=== PATIENT | male | born 1950 | race Caucasian/White ===

== ENCOUNTER 2024-05-31 11:38 | Emergency (ER) | payer OTHER, MEDICARE ==
[2024-05-31 13:39] LABS: Absolute Monocytes 0.2 K/uL (0.1-1.3); Basophils % 0.9 % (0-1.3); Eosinophils % 1.2 % (0-4.4); Hematocrit 19.1 % (39.6-49.0); Hemoglobin 6.6 g/dL (13.6-17.9); MCH 35.1 pg (27.0-35.0); MCHC 34.3 g/dL (32.0-36.0); MCV 102.4 fL (80-100); Monocytes % 5.5 % (3.3-12.3); Neutrophils % 31.4 % (41.7-73.7); Nucleated Red Blood Cells % 0.2 % (0-0); Platelets 51 thou/uL (152-406); RBC Red Blood Cell Count 1.87 M/uL (4.33-5.43); Red Cell Distribution Width 21.7 % (12.1-15.2)
[2024-05-31 13:42] LABS: PT Prothrombin Time 12.4 SECONDS (10-13.0); PTT, Activated Partial Thromb 28.9 SECONDS (27.2-37.4); Protime INR 1.09
[2024-05-31 13:46] LABS: AST/SGOT 16 U/L (15-37); Albumin 3.6 g/dL (3.4-5.0); Albumin/Globulin Ratio 1.3 (1.1-1.8); Alkaline Phosphatase 101 U/L (45-117); Anion Gap 9.2 mEq/L (5.0-15.0); BUN Blood Urea Nitrogen 20 mg/dL (7-18); Bicarbonate 26 mEq/L (21-32); Bilirubin Direct 0.4 mg/dL (0-0.2); Bilirubin Indirect, Calculated 1.1 mg/dL (0.2-0.8); Bilirubin Total 1.5 mg/dL (0.2-1.0); Globulin 2.8 g/dL (2.3-3.5); Glomerular Filtration Rate 61 ml/min (=/>90); Glucose Level 99 mg/dL (74-106); Potassium 4.2 mEq/L (3.5-5.1); Protein, Total 6.4 g/dL (6.4-8.2); Sodium Level 139 mEq/L (136-145); Troponin High Sensitivity 4.8 pg/mL (<58.9)
[2024-05-31 13:47] LABS: Anisocytosis 1+; Blood Morphology Comment NOTED (NOT SEEN); Platelet Estimate DECR; White Blood Cell Scan OK (OK)
[2024-05-31 13:49] LABS: ALT/SGPT < 14 U/L (16-61)
[2024-05-31] MEDS ORDERED: NA CHLORIDE 0.9% 250 ML ONE ×2 (14:51→18:34)
--- NOTE | 2024-05-31 16:03 | ER ---
Nurse's Notes [facility] Name: Isai Diaz Age: 73 yrs Sex: Male : 1950 Arrival Date: 05/31/2024 Time: 11:38 Bed 18 Private MD: Diagnosis: Anemia of unknown etiology Presentation: 05/31 12:18 Chief complaint: Patient states: Sent to the ER by PCP for low HGB. Pt states that his cm10 HGB was 6.1 yesterday. Pt states that he has had 2 transfusions over the last 6 months. Coronavirus screen: Client denies travel out of the [place] in the last 14 days. Ebola Screen: Patient denies travel to an Ebola-affected area in the 21 days before illness onset. Initial Sepsis Screen: Does the patient meet any 2 criteria? No. Patient's initial sepsis screen is negative. Does the patient have a suspected source of infection? No. Patient's initial sepsis screen is negative. Risk Assessment: Do you want to hurt yourself or someone else? Patient reports no desire to harm self or others. Onset of symptoms was May 31, 2024. 12:18 Method Of Arrival: Ambulatory cm10 12:18 Acuity: CALIN 3 cm10 Triage Assessment: 12:23 General: Appears in no apparent distress. comfortable, Behavior is calm, cooperative. cm10 Neuro: No deficits noted. Level of Consciousness is awake, alert, obeys commands, Oriented to person, place, time, situation, Appropriate for age. Respiratory: Airway is patent Respiratory effort is even, unlabored, Respiratory pattern is regular, symmetrical. Derm: Skin is pale. Historical: - Allergies: 12:20 No Known Allergies; cm10 - Home Meds: 12:20 levothyroxine 175 mcg tablet [Active]; atorvastatin 40 mg oral tablet [Active]; cm10 metoprolol tartrate 100 mg Oral tablet [Active]; omeprazole 40 mg Oral capsule,delayed release (e.c.) [Active]; tamsulosin 0.4 mg oral capsule [Active]; - PMHx: 12:20 Anemia; squamous cell carcinoma- tongue; Hypertensive disorder; Hypercholesterolemia; cm10 Hypothyroidism; - Immunization history:: Adult Immunizations up to date. - Infectious Disease History:: Denies. - Social history:: Smoking status: Patient/guardian denies using tobacco. Screenin:30 [facility] ED Fall Risk Assessment (Adult) History of falling in the last 3 months, kj2 including since admission No falls in past 3 months (0 pts) Confusion or Disorientation No (0 pts) Intoxicated or Sedated No (0 pts) Impaired Gait No (0 pts) Mobility Assist Device Used No (0 pt) Altered Elimination No (0 pt) Score/Fall Risk Level 0 - 2 = Low Risk Maintained a safe environment, Hourly rounding (assess needs \T\ fall precautionary measures) done. Abuse screen: Denies threats or abuse. Denies injuries from another. Nutritional screening: No deficits noted. Tuberculosis screening: No symptoms or risk factors identified. Assessment: 12:30 General: Appears in no apparent distress. Behavior is calm, cooperative. Pain: Denies kj2 pain. Neuro: Level of Consciousness is awake, alert, obeys commands, Oriented to person, place, time, situation. Cardiovascular: Patient's skin is warm and dry. Respiratory: Airway is patent Respiratory effort is even, unlabored. GI: Abdomen is. : No signs and/or symptoms were reported regarding the genitourinary system. 13:30 Reassessment: Patient appears in no apparent distress at this time. Patient and/or kj2 family updated on plan of care and expected duration. Pain level reassessed. Patient is alert, oriented x 3, equal unlabored respirations, skin warm/dry/pink. 14:40 Reassessment: Patient appears in no apparent distress at this time. Patient and/or kj2 family updated on plan of care and expected duration. Pain level reassessed. Patient is alert, oriented x 3, equal unlabored respirations, skin warm/dry/pink. 15:15 Reassessment: blood transfusion started. kj2 16:15 Reassessment: discharge after blood transfusion. kj2 16:15 Reassessment: Patient appears in no apparent distress at this time. Patient and/or kj2 family updated on plan of care and expected duration. Pain level reassessed. Patient is alert, oriented x 3, equal unlabored respirations, skin warm/dry/pink. 17:15 Reassessment: Patient appears in no apparent distress at this time. Patient and/or kj2 family updated on plan of care and expected duration. Pain level reassessed. Patient is alert, oriented x 3, equal unlabored respirations, skin warm/dry/pink. 18:30 Reassessment: Patient appears in no apparent distress at this time. Patient and/or kj2 family updated on plan of care and expected duration. Pain level reassessed. Patient is alert, oriented x 3, equal unlabored respirations, skin warm/dry/pink. 19:30 Reassessment: Patient appears in no apparent distress at this time. Patient and/or kj2 family updated on plan of care and expected duration. Pain level reassessed. Patient is alert, oriented x 3, equal unlabored respirations, skin warm/dry/pink. 20:30 Reassessment: Patient appears in no apparent distress at this time. Patient and/or kj2 family updated on plan of care and expected duration. Pain level reassessed. Patient is alert, oriented x 3, equal unlabored respirations, skin warm/dry/pink. 21:30 Reassessment: Patient appears in no apparent distress at this time. Patient and/or kj2 family updated on plan of care and expected duration. Pain level reassessed. Patient is alert, oriented x 3, equal unlabored respirations, skin warm/dry/pink. 22:15 Reassessment: Patient appears in no apparent distress at this time. Patient and/or kj2 family updated on plan of care and expected duration. Pain level reassessed. Patient is alert, oriented x 3, equal unlabored respirations, skin warm/dry/pink. blood transfusion stopped. Vital Signs: 12:18 BP 129 / 65; Pulse 74; Resp 15; Temp 98.3; Pulse Ox 100% on R/A; Weight 92.99 kg; cm10 Height 5 ft. 10 in. ; Pain 0/10; 12:30 BP 116 / 55; Pulse 68; Resp 18; Pulse Ox 100% on R/A; kj2 13:30 BP 112 / 59; Pulse 64; Resp 18; Pulse Ox 100% on R/A; kj2 14:40 BP 109 / 56; Pulse 60; Resp 18; Pulse Ox 100% ; kj2 15:15 BP 134 / 58; Pulse 69; Resp 18; Temp 97.9; Pulse Ox 100% on R/A; kj2 15:20 BP 129 / 65; Pulse 68; Resp 18; Temp 97.9; Pulse Ox 100% on R/A; kj2 15:30 BP 127 / 50; Pulse 65; Resp 20; Temp 97.9; Pulse Ox 100% on R/A; kj2 16:15 BP 130 / 62; Pulse 66; Resp 20; Temp 97.9; Pulse Ox 100% on R/A; kj2 17:15 BP 143 / 60; Pulse 70; Resp 18; Temp 97.9; Pulse Ox 100% on R/A; kj2 18:30 BP 139 / 65; Pulse 64; Resp 20; Temp 97.9; Pulse Ox 100% ; kj2 19:30 BP 136 / 68; Pulse 70; Resp 18; Pulse Ox 100% on R/A; kj2 20:30 BP 142 / 60; Pulse 68; Resp 18; Temp 98.1; Pulse Ox 100% ; kj2 21:30 BP 134 / 66; Pulse 60; Resp 18; Temp 98.1; Pulse Ox 100% on R/A; kj2 22:15 BP 149 / 70; Pulse 70; Resp 18; Temp 98.2; Pulse Ox 100% on R/A; kj2 12:18 Body Mass Index 29.41 (92.99 kg, 177.8 cm) cm10 12:18 Pain Scale: Adult cm10 ED Course: 11:42 Patient arrived in ED. mr 11:44 Alfredo Scott MD is Attending Physician. sp3 12:20 Triage completed. cm10 12:23 Arm band placed on left wrist. Patient placed in an exam room, on a stretcher. cm10 12:30 Patient has correct armband on for positive identification. Bed in low position. Call kj2 light in reach. Provided Education on: call light. 12:47 Anne-Marie Jin, RN is Primary Nurse. kj2 13:10 Inserted saline lock: 20 gauge in left antecubital area, using aseptic technique. Blood kj2 collected. Flushed with 10 mL NS. 13:19 Type And Screen Sent. kj2 13:19 Ptt, Activated Sent. kj2 15:31 Inserted saline lock:. kj2 22:25 IV discontinued, intact, bleeding controlled, No redness/swelling at site. Pressure kj2 dressing applied. 22:55 No provider procedures requiring assistance completed. kj2 Administered Medications: No medications were administered Medication: 15:37 VIS not applicable for this client. kj2 Outcome: 16:03 Discharge ordered by . sp3 22:55 Discharged to home ambulatory, kj2 22:55 Condition: stable 22:55 Discharge instructions given to patient, Instructed on discharge instructions, follow up and referral plans. Demonstrated understanding of instructions, follow-up care, 22:56 Patient left the ED. kj2 Signatures: Elena Navarrete, Reg Reg ScottAlfredo MD MD sp3 Steff Lamb, RN RN cm10 Anne-Marie Jin RN RN kj2 Corrections: (The following items were deleted from the chart) 13:33 13:18 ABO/RH typing drawn and sent. kj2 EDMS 13:33 13:18 Antibody Screen drawn and sent. kj2 EDMS 15:36 15:35 Blood products: kj2 kj2
--- NOTE | 2024-05-31 16:03 | EDPHYS ---
Physician Documentation [facility] Name: Isai Diaz Age: 73 yrs Sex: Male : 1950 Arrival Date: 05/31/2024 Time: 11:38 Bed 18 Private MD: ED Physician Alfredo Scott HPI: 05/31 14:00 This 73 yrs old Male presents to ER via Ambulatory with complaints of Abnormal Lab sp3 Results - low Hgb. 14:00 73-year-old male with history of squamous cell carcinoma of the tongue in the past sp3 currently no evidence of disease, hypertension, hyperlipidemia, anemia now presents to the ED sent by his PCP for hemoglobin 6.2. Patient has been receiving multiple transfusions over the last 6 months due to persistent anemia. There is no GI blood loss as he has had negative endoscopy and colonoscopy. He has an appointment set for next month to see hematology Dr. Rodriguez for next steps. Currently he is having no pain and no symptoms. Review of systems completely negative.. Historical: - Allergies: 12:20 No Known Allergies; cm10 - Home Meds: 12:20 levothyroxine 175 mcg tablet [Active]; atorvastatin 40 mg oral tablet [Active]; cm10 metoprolol tartrate 100 mg Oral tablet [Active]; omeprazole 40 mg Oral capsule,delayed release (e.c.) [Active]; tamsulosin 0.4 mg oral capsule [Active]; - PMHx: 12:20 Anemia; squamous cell carcinoma- tongue; Hypertensive disorder; Hypercholesterolemia; cm10 Hypothyroidism; - Immunization history:: Adult Immunizations up to date. - Infectious Disease History:: Denies. - Social history:: Smoking status: Patient/guardian denies using tobacco. ROS: 14:01 Constitutional: Negative for fever, chills, and weight loss, Eyes: Negative for injury, sp3 pain, redness, and discharge, ENT: Negative for injury, pain, and discharge, Neck: Negative for injury, pain, and swelling, Cardiovascular: Negative for chest pain, palpitations, and edema, Respiratory: Negative for shortness of breath, cough, wheezing, and pleuritic chest pain, Abdomen/GI: Negative for abdominal pain, nausea, vomiting, diarrhea, and constipation, Back: Negative for injury and pain, MS/Extremity: Negative for injury and deformity, Skin: Negative for injury, rash, and discoloration, Neuro: Negative for headache, weakness, numbness, tingling, and seizure, Psych: Negative for depression, anxiety, suicide ideation, homicidal ideation, and hallucinations, Endocrine: Negative for neck swelling, polydipsia, polyuria, polyphagia, and marked weight changes, 14:01 All other systems are negative, Exam: 14:01 Constitutional: This is a well developed, well nourished patient who is awake, alert, sp3 and in no acute distress. Head/Face: Normocephalic, atraumatic. Eyes: Pupils equal round and reactive to light, extra-ocular motions intact. Lids and lashes normal. Conjunctiva and sclera are non-icteric and not injected. Cornea within normal limits. Periorbital areas with no swelling, redness, or edema. Neck: Trachea midline, no thyromegaly or masses palpated, and no cervical lymphadenopathy. Supple, full range of motion without nuchal rigidity, or vertebral point tenderness. No Meningismus. Chest/axilla: Normal chest wall appearance and motion. Nontender with no deformity. No lesions are appreciated. Cardiovascular: Regular rate and rhythm with a normal S1 and S2. No gallops, murmurs, or rubs. Normal PMI, no JVD. No pulse deficits. Respiratory: Lungs have equal breath sounds bilaterally, clear to auscultation and percussion. No rales, rhonchi or wheezes noted. No increased work of breathing, no retractions or nasal flaring. Abdomen/GI: Soft, non-tender, with normal bowel sounds. No distension or tympany. No guarding or rebound. No evidence of tenderness throughout. Back: No spinal tenderness. No costovertebral tenderness. Full range of motion. Skin: Warm, dry with normal turgor. Normal color with no rashes, no lesions, and no evidence of cellulitis. MS/ Extremity: Pulses equal, no cyanosis. Neurovascular intact. Full, normal range of motion. Neuro: Awake and alert, GCS 15, oriented to person, place, time, and situation. Cranial nerves II-XII grossly intact. Motor strength 5/5 in all extremities. Sensory grossly intact. Cerebellar exam normal. Normal gait. Psych: Awake, alert, with orientation to person, place and time. Behavior, mood, and affect are within normal limits. Vital Signs: 12:18 BP 129 / 65; Pulse 74; Resp 15; Temp 98.3; Pulse Ox 100% on R/A; Weight 92.99 kg; cm10 Height 5 ft. 10 in. ; Pain 0/10; 12:30 BP 116 / 55; Pulse 68; Resp 18; Pulse Ox 100% on R/A; kj2 13:30 BP 112 / 59; Pulse 64; Resp 18; Pulse Ox 100% on R/A; kj2 14:40 BP 109 / 56; Pulse 60; Resp 18; Pulse Ox 100% ; kj2 15:15 BP 134 / 58; Pulse 69; Resp 18; Temp 97.9; Pulse Ox 100% on R/A; kj2 15:20 BP 129 / 65; Pulse 68; Resp 18; Temp 97.9; Pulse Ox 100% on R/A; kj2 15:30 BP 127 / 50; Pulse 65; Resp 20; Temp 97.9; Pulse Ox 100% on R/A; kj2 16:15 BP 130 / 62; Pulse 66; Resp 20; Temp 97.9; Pulse Ox 100% on R/A; kj2 17:15 BP 143 / 60; Pulse 70; Resp 18; Temp 97.9; Pulse Ox 100% on R/A; kj2 18:30 BP 139 / 65; Pulse 64; Resp 20; Temp 97.9; Pulse Ox 100% ; kj2 19:30 BP 136 / 68; Pulse 70; Resp 18; Pulse Ox 100% on R/A; kj2 20:30 BP 142 / 60; Pulse 68; Resp 18; Temp 98.1; Pulse Ox 100% ; kj2 21:30 BP 134 / 66; Pulse 60; Resp 18; Temp 98.1; Pulse Ox 100% on R/A; kj2 22:15 BP 149 / 70; Pulse 70; Resp 18; Temp 98.2; Pulse Ox 100% on R/A; kj2 12:18 Body Mass Index 29.41 (92.99 kg, 177.8 cm) cm10 12:18 Pain Scale: Adult cm10 MDM: 12:26 Medical Screening Exam initiated sp3 14:02 Data reviewed: vital signs, nurses notes, old medical records, lab test result(s), EKG, sp3 radiologic studies. ED course: 73-year-old male with unknown multiple instances of anemia. Full workup with hematology is in the works. There is no GI blood loss. We will transfuse 2 units PRBCs, recheck blood work and provide supportive care. Currently vital signs are normal and patient is having no symptoms whatsoever. Probable discharge home after transfusion is complete.. 16:02 ED course: Patient with no complication to blood transfusion. Will jaden patient is sp3 discharged however patient will remain in the ED until blood transfusion is complete.. 05/31 12:27 Order name: Basic Metabolic Panel; Complete Time: 22:35 3 05/31 12:27 Order name: CBC with Diff; Complete Time: 22:35 [facility] 05/31 12:27 Order name: LFT's; Complete Time: 22:35 [facility] 05/31 12:27 Order name: PT-INR; Complete Time: 22:35 [facility] 05/31 12:27 Order name: Troponin HS; Complete Time: 22:35 [facility] 05/31 12:27 Order name: Ptt, Activated; Complete Time: 22:35 [facility] 05/31 12:27 Order name: Type And Screen [facility] 05/31 12:32 Order name: Bb Add On iw 05/31 13:47 Order name: CBC Smear Scan; Complete Time: 22:35 [facility] 05/31 14:01 Order name: Packed RBC Leukored [facility] 05/31 14:26 Order name: ABO/RH no charge; Complete Time: 22:35 [facility] 05/31 16:20 Order name: Manual Differential; Complete Time: 22:35 [facility] 05/31 12:27 Order name: Cardiac monitoring; Complete Time: 21:48 [facility] 05/31 12:27 Order name: EKG - Nurse/Tech; Complete Time: 21:48 [facility] 05/31 12:27 Order name: IV Saline Lock 3 05/31 12:27 Order name: Labs collected and sent; Complete Time: 13:19 [facility] 05/31 12:27 Order name: O2 Sat Monitoring [facility] 05/31 12:27 Order name: Transfuse sp3 EC:01 Rate is 76 beats/min. Rhythm is irregularly irregular, A fib. QRS interval is normal at sb4 94 msec. QT interval is normal at 398 msec. No Q waves. T waves are Normal. No ST changes noted. Clinical impression: Atrial Fibrillation. Interpreted by me. Reviewed by me. Administered Medications: No medications were administered Disposition Summary: 05/31/24 16:03 Discharge Ordered Notes: Location: Home sp3 Condition: Stable sp3 Diagnosis - Anemia of unknown etiology sp3 Followup: sp3 - With: Private Physician - When: Upon discharge from the Emergency Department - Reason: Recheck today's complaints Discharge Instructions: - Discharge Summary Sheet sp3 - Blood Transfusion, Adult, Care After sp3 Forms: - Medication Reconciliation Form sp3 - Antibiotic Education sp3 - Prescription Opioid Use sp3 - Patient Portal Instructions sp3 - Leadership Thank You Letter sp3 Signatures: Dispatcher [employer] EDMS Alfredo Scott MD MD sp3 Anu Paniagua PA-C PAZenaida sb4 Steff Lamb RN RN cm10 Corrections: (The following items were deleted from the chart) 12:28 12:28 BASIC METABOLIC PANEL+C.LAB.BRZ ordered. EDMS EDMS 12:28 12:28 CBC+H.LAB.BRZ ordered. EDMS EDMS 12:28 12:28 HEPATIC FUNCTION+C.LAB.BRZ ordered. EDMS EDMS 12:28 12:28 PROTIME (+INR)+COAG.LAB.BRZ ordered. EDMS EDMS 12:28 12:28 Troponin High Sensitivity+C.LAB.BRZ ordered. EDMS EDMS 12:28 12:28 PTT, ACTIVATED+COAG.LAB.BRZ ordered. EDMS EDMS 12:28 12:28 TYPE AND SCREEN+BB.LAB.BRZ ordered. EDMS EDMS 13:33 12:28 PACKED RBC LEUKORED+BB.LAB.BRZ ordered. EDMS EDMS 13:33 12:31 ABO/RH typing ordered. EDMS EDMS 13:33 12:31 Antibody Screen ordered. EDMS EDMS
[2024-05-31 16:20] LABS: Differential Total Cells Count 100; Lymphocytes 73 % (15-42); Monocytes 2 % (0-10); Segmented Neutrophils 25 % (40-80)
[2024-06-01 03:08] VITALS: O2SAT 100
[2024-06-01 03:25] VITALS: BP 149/70; TEMP 98.2
== END 2024-05-31 22:56 | disposition home or self-care (01) ==
LOC: ER 11:38
PROC: 30233N1 Transfusion of Nonautologous Red Blood Cells into Peripheral Vein, Percutaneous Approach (ICD-10-PCS; principal; 2024-05-31)
DX: D64.9 Anemia, unspecified (principal); Z85.810 Personal history of malignant neoplasm of tongue
CPT/HCPCS: 85025; 80048; 36415; 86900; 86850; 85610; 86901; 80076; 85730; 86920 ×2; 84484; 36430; P9016 ×2; J7050 ×2; 93005

== ENCOUNTER 2024-08-04 11:36 | Emergency (ER) | payer OTHER, MEDICARE ==
--- NOTE | 2024-08-04 12:43 | RAD REPORT ---
EXAMINATION: ONE VIEW CHEST XR CLINICAL INDICATION: COUGH TECHNIQUE: Frontal chest projection is submitted. Examination is limited by patient positioning and t echnique. COMPARISON: No prior exam. FINDINGS: The lungs are well inflated and clear. Heart is moderately enlarged. Sternotomy wires present. Multi lead pacer device. IMPRESSION: No acute intrathoracic abnormalities.
[2024-08-04 12:52] LABS: Absolute Lymphocytes (CBC) 1.6 K/uL (0.7-4.9); Absolute Monocytes 0.1 K/uL (0.1-1.3); Absolute Neutrophil 0.9 K/uL (1.8-8.0); Basophils % 0.8 % (0-1.3); Eosinophils % 1.3 % (0-4.4); Hematocrit 17.9 % (39.6-49.0); Hemoglobin 6.3 g/dL (13.6-17.9); Lymphocytes % 59.4 % (15.3-44.8); MCH 35.6 pg (27.0-35.0); MCHC 35.2 g/dL (32.0-36.0); MCV 101.1 fL (80-100); MPV 10.5 fL (7.6-11.3); Monocytes % 4.7 % (3.3-12.3); Neutrophils % 33.8 % (41.7-73.7); Nucleated Red Blood Cells % 0.1 % (0-0); Platelets 49 thou/uL (152-406); RBC Red Blood Cell Count 1.77 M/uL (4.33-5.43); Red Cell Distribution Width 26.7 % (12.1-15.2)
[2024-08-04 13:08] LABS: AST/SGOT 16 U/L (15-37); Albumin 3.5 g/dL (3.4-5.0); Albumin/Globulin Ratio 1.3 (1.1-1.8); Alkaline Phosphatase 102 U/L (45-117); BUN Blood Urea Nitrogen 19 mg/dL (7-18); Bicarbonate 25 mEq/L (21-32); Bilirubin Total 1.6 mg/dL (0.2-1.0); Globulin 2.6 g/dL (2.3-3.5); Glomerular Filtration Rate 58 ml/min (=/>90); Glucose Level 137 mg/dL (74-106); Protein, Total 6.1 g/dL (6.4-8.2); Sodium Level 140 mEq/L (136-145)
[2024-08-04 13:14] LABS: ALT/SGPT < 14 U/L (16-61)
[2024-08-04] MEDS ORDERED: NA CHLORIDE 0.9% 250 ML ONE ×2 (13:14→16:13)
[2024-08-04] MEDS ORDERED: NA CHLORIDE 0.9% 0 ML ONE (13:15)
--- NOTE | 2024-08-04 15:28 | ER ---
Nurse's Notes [facility] Name: Dm Diaz Age: 73 yrs Sex: Male : 1950 Arrival Date: 08/04/2024 Time: 11:36 Bed 6 Private MD: Diagnosis: Anemia in neoplastic disease;Anemia, unspecified;Other pancytopenia Presentation: 08/04 11:52 Chief complaint: Patient states: reports being instructed by cancer center to come to aa5 ER for low hemoglobin. 11:52 Coronavirus screen: At this time, the client does not indicate any symptoms associated aa5 with coronavirus-19. Ebola Screen: Patient denies travel to an Ebola-affected area in the 21 days before illness onset. Initial Sepsis Screen: Does the patient meet any 2 criteria? No. Patient's initial sepsis screen is negative. Does the patient have a suspected source of infection? No. Patient's initial sepsis screen is negative. Risk Assessment: Do you want to hurt yourself or someone else? Patient reports no desire to harm self or others. Onset of symptoms was August 04, 2024. 11:52 Acuity: CALIN 2 aa5 11:52 Method Of Arrival: Ambulatory aa5 Historical: - Allergies: 11:55 No Known Allergies; aa5 - PMHx: 11:52 Anemia; Hypercholesterolemia; Hypertensive disorder; Hypothyroidism; squamous cell aa5 carcinoma- tongue; - Immunization history:: Adult Immunizations unknown. - Infectious Disease History:: Denies. - Social history:: Smoking status: Patient reports the use of cigarette tobacco products. - Family history:: not pertinent. Screenin:54 [facility] ED Fall Risk Assessment (Adult) History of falling in the last 3 months, iw including since admission No falls in past 3 months (0 pts) Confusion or Disorientation No (0 pts) Intoxicated or Sedated No (0 pts) Impaired Gait No (0 pts) Mobility Assist Device Used No (0 pt) Altered Elimination No (0 pt) Score/Fall Risk Level 0 - 2 = Low Risk Oriented to surroundings, Maintained a safe environment. Abuse screen: Denies threats or abuse. Denies injuries from another. Nutritional screening: No deficits noted. Tuberculosis screening: No symptoms or risk factors identified. Assessment: 12:54 General: Appears in no apparent distress. Behavior is calm, cooperative. Pain: Denies iw pain. Neuro: Level of Consciousness is awake, alert, obeys commands, Oriented to person, place, time, situation, Moves all extremities. Full function. Cardiovascular: Patient's skin is warm and dry. Respiratory: Reports shortness of breath on exertion Respiratory effort is even, unlabored, Respiratory pattern is regular, symmetrical. GI: Abdomen is non-distended. Derm: Skin is pale, Skin temperature is warm. Musculoskeletal: Range of motion: intact in all extremities. 14:00 Reassessment: Patient appears in no apparent distress at this time. Patient and/or iw family updated on plan of care and expected duration. Pain level reassessed. Patient is alert, oriented x 3, equal unlabored respirations, skin warm/dry/pink. pt consented for blood transfusion. 16:25 Reassessment: Patient appears in no apparent distress at this time. Patient and/or iw family updated on plan of care and expected duration. Pain level reassessed. Patient is alert, oriented x 3, equal unlabored respirations, skin warm/dry/pink. no adverse reaction noted during first unit of blood, 2nd unit started a 1625. Vital Signs: 11:52 BP 117 / 57; Pulse 77; Resp 18 S; Temp 97.5(O); Pulse Ox 100% on R/A; Weight 91.17 kg aa5 (R); Height 5 ft. 10 in. (R); 14:23 BP 129 / 66; Pulse 64; Resp 16; Temp 98.1(O); Pulse Ox 100% on R/A; iw 16:20 BP 153 / 65; Pulse 61; Resp 19; Temp 98.1; Pulse Ox 100% on R/A; iw 11:52 Body Mass Index 28.84 (91.17 kg, 177.8 cm) aa5 ED Course: 11:39 Patient arrived in ED. im 11:43 Jr Goodrich MD is Attending Physician. carine 11:52 Arm band placed on. aa5 11:55 Triage completed. aa5 12:05 Deepthi Quijano, ORAL is Primary Nurse. iw 12:42 Chest Single View XRAY In Process Unspecified. EDMS 13:00 Initial lab(s) drawn, by me, sent to lab. T\T\S collected, blood band applied to patient. iw Inserted saline lock: 20 gauge in right antecubital area, using aseptic technique. Blood collected. Flushed with 10 mL NS. Administered Medications: 15:07 Not Given (Patient Refused): ns 0.9% 500 ml 500 ml IV at 1 bolus once; to be given as a iw bolus over 30 minutes Medication: 12:54 VIS not applicable for this client. iw Outcome: 15:28 Discharge ordered by . carine 17:58 Patient left the ED. iw Signatures: Dispatcher [employer] EDJr Chicas MD MD cha Williams, Irene, RN RN Jeanette Whatley RN RN aa5 Dinorah De Anda
--- NOTE | 2024-08-04 15:28 | EDPHYS ---
Physician Documentation [facility] Name: Dm Diaz Age: 73 yrs Sex: Male : 1950 Arrival Date: 08/04/2024 Time: 11:36 Bed 6 Private MD: ED Physician Jr Goodrich HPI: 08/04 13:17 This 73 yrs old Male presents to ER via Ambulatory with complaints of carine Abnormal Lab Results. 13:17 needs transfusion. Onset: The symptoms/episode began/occurred 3 day(s) ago. Severity of carine symptoms: At their worst the symptoms were moderate in the emergency department the symptoms are unchanged. The patient has experienced similar episodes in the past, multiple times. Historical: - Allergies: 11:55 No Known Allergies; aa5 - PMHx: 11:52 Anemia; Hypercholesterolemia; Hypertensive disorder; Hypothyroidism; squamous cell aa5 carcinoma- tongue; - Immunization history:: Adult Immunizations unknown. - Infectious Disease History:: Denies. - Social history:: Smoking status: Patient reports the use of cigarette tobacco products. - Family history:: not pertinent. ROS: 13:17 Constitutional: Negative for fever, chills, and weight loss, Eyes: Negative for injury, carine pain, redness, and discharge, ENT: Negative for injury, pain, and discharge, Neck: Negative for injury, pain, and swelling, Cardiovascular: Negative for chest pain, palpitations, and edema, Respiratory: Negative for shortness of breath, cough, wheezing, and pleuritic chest pain, Abdomen/GI: Negative for abdominal pain, nausea, vomiting, diarrhea, and constipation, Back: Negative for injury and pain, : Negative for injury, bleeding, discharge, and swelling, MS/Extremity: Negative for injury and deformity, Psych: Negative for depression, anxiety, suicide ideation, homicidal ideation, and hallucinations, Allergy/Immunology: Negative for hives, rash, and allergies, Endocrine: Negative for neck swelling, polydipsia, polyuria, polyphagia, and marked weight changes, Hematologic/Lymphatic: Negative for swollen nodes, abnormal bleeding, and unusual bruising, 13:17 Skin: Positive for pallor, Exam: 13:17 Constitutional: This is a well developed, well nourished patient who is awake, alert, carine and in no acute distress. Head/Face: Normocephalic, atraumatic. Eyes: Pupils equal round and reactive to light, extra-ocular motions intact. Lids and lashes normal. Conjunctiva and sclera are non-icteric and not injected. Cornea within normal limits. Periorbital areas with no swelling, redness, or edema. ENT: Nares patent. No nasal discharge, no septal abnormalities noted. Tympanic membranes are normal and external auditory canals are clear. Oropharynx with no redness, swelling, or masses, exudates, or evidence of obstruction, uvula midline. Mucous membranes moist. Neck: Trachea midline, no thyromegaly or masses palpated, and no cervical lymphadenopathy. Supple, full range of motion without nuchal rigidity, or vertebral point tenderness. No Meningismus. Chest/axilla: Normal chest wall appearance and motion. Nontender with no deformity. No lesions are appreciated. Cardiovascular: Regular rate and rhythm with a normal S1 and S2. No gallops, murmurs, or rubs. Normal PMI, no JVD. No pulse deficits. Respiratory: Lungs have equal breath sounds bilaterally, clear to auscultation and percussion. No rales, rhonchi or wheezes noted. No increased work of breathing, no retractions or nasal flaring. Abdomen/GI: Soft, non-tender, with normal bowel sounds. No distension or tympany. No guarding or rebound. No evidence of tenderness throughout. Back: No spinal tenderness. No costovertebral tenderness. Full range of motion. Male : Normal genitalia with no discharge or lesions. MS/ Extremity: Pulses equal, no cyanosis. Neurovascular intact. Full, normal range of motion., bilateral aka Neuro: Awake and alert, GCS 15, oriented to person, place, time, and situation. Cranial nerves II-XII grossly intact. Motor strength 5/5 in all extremities. Sensory grossly intact. Cerebellar exam normal. Normal gait. Psych: Awake, alert, with orientation to person, place and time. Behavior, mood, and affect are within normal limits. 13:17 Skin: Appearance: Color: pale, Temperature: normal temperature, Moisture: normal moisture, petechiae, not noted, ecchymosis, not noted, abscess, not appreciated, cellulitis, is not appreciated, induration, is not appreciated, 13:17 Neuro: Exam negative for acute changes, Orientation: is normal, appropriate for stated age, no acute changes, Mentation: is normal, appropriate for stated age, no acute changes, Memory: is normal, Cranial nerves: grossly normal, is grossly normal based on the patient's age, no acute changes, Cerebellar function: is grossly normal, Sensation: is normal, no obvious gross deficits, appropriate Gait: is steady, at a normal pace, without difficulty, Babinski testing is normal, seizure activity, is not displayed by the patient, Vital Signs: 11:52 BP 117 / 57; Pulse 77; Resp 18 S; Temp 97.5(O); Pulse Ox 100% on R/A; Weight 91.17 kg aa5 (R); Height 5 ft. 10 in. (R); 14:23 BP 129 / 66; Pulse 64; Resp 16; Temp 98.1(O); Pulse Ox 100% on R/A; iw 16:20 BP 153 / 65; Pulse 61; Resp 19; Temp 98.1; Pulse Ox 100% on R/A; iw 11:52 Body Mass Index 28.84 (91.17 kg, 177.8 cm) aa5 MDM: 11:43 Medical Screening Exam initiated [facility] 13:25 Differential Diagnosis altered mental status, sepsis, flu. Data reviewed: vital signs, [facility] nurses notes, lab test result(s), radiologic studies, plain films. Consideration of Admission/Observation Escalation of care including admission/observation considered. I considered the following discharge prescriptions or medication management in the emergency department Medications were administered in the Emergency Department. See MAR. Independent interpretation of the following test(s) in the Emergency Department X-Ray: My interpretation is cxr neg. Test considered but Not performed: EKG: no ekg. Historians other than the Patient: pt well informed. Care significantly affected by the following chronic conditions: Hypertension, Cancer, anemia , high chlesterol. 08/04 12:25 Order name: Type And Screen [facility] 08/04 12:25 Order name: CBC with Diff [facility] 08/04 12:25 Order name: CMP; Complete Time: 14:06 [facility] 08/04 12:58 Order name: Packed RBC Leukored [facility] 08/04 13:03 Order name: Manual Differential [facility] 08/04 12:25 Order name: Chest Single View XRAY; Complete Time: 14:06 [facility] 08/04 12:25 Order name: Transfuse; Complete Time: 15:05 carine Administered Medications: 15:07 Not Given (Patient Refused): ns 0.9% 500 ml 500 ml IV at 1 bolus once; to be given as a iw bolus over 30 minutes Disposition Summary: 08/04/24 15:28 Discharge Ordered Notes: Location: Home [facility] Problem: new carine Symptoms: have improved carine Condition: Fair carine Diagnosis - Anemia in neoplastic disease carine - Anemia, unspecified carine - Other pancytopenia carine Followup: carine - With: Private Physician - When: 2 - 3 days - Reason: Recheck today's complaints, Continuance of care, Re-evaluation by your physician Discharge Instructions: - Discharge Summary Sheet carine - Anemia carine - Blood Transfusion, Adult carine - Blood Transfusion, Adult, [id number] carine - Blood Transfusion, Adult, Care After, [id number] carine - Blood Transfusion, Adult, Care After carine - Pancytopenia carine Forms: - Medication Reconciliation Form carine - Antibiotic Education carine - Prescription Opioid Use carine - Patient Portal Instructions carine - Leadership Thank You Letter carine Signatures: Dispatcher [employer] EDJr Chicas MD MD cha Williams, Irene, RN RN Jeanette Whatley RN RN aa5 Corrections: (The following items were deleted from the chart) 12:26 12:26 CBC+H.LAB.BRZ ordered. EDMS EDMS 12: 12:26 COMPREHENSIVE METABOLIC PANEL+C.LAB.BRZ ordered. EDMS EDMS 12:26 12:26 TYPE AND SCREEN+BB.LAB.BRZ ordered. EDMS EDMS 12:58 12:26 PACKED RBC LEUKORED+BB.LAB.BRZ ordered. EDMS EDMS 12:58 12:28 ABO/RH typing ordered. EDMS EDMS 12:58 12:28 Antibody Screen ordered. EDMS EDMS
[2024-08-04 15:31] LABS: Anisocytosis 3+; Band Neutrophils 1 % (0-1); Blood Morphology Comment NOTED (NOT SEEN); Differential Total Cells Count 100; Eosinophils 1 % (0-3); Lymphocytes 60 % (15-42); Monocytes 3 % (0-10); Ovalocytes SLIGHT; Platelet Estimate DECR; Poikilocytosis SLIGHT; Polychromasia 1+; Segmented Neutrophils 34 % (40-80)
[2024-08-04 18:15] VITALS: O2SAT 100
[2024-08-04 18:18] VITALS: BP 153/65; TEMP 98.1
== END 2024-08-04 17:58 | disposition home or self-care (01) ==
LOC: ER 11:36
PROC: 30233N1 Transfusion of Nonautologous Red Blood Cells into Peripheral Vein, Percutaneous Approach (ICD-10-PCS; principal; 2024-08-04)
DX: D00.07 Carcinoma in situ of tongue (principal); D63.0 Anemia in neoplastic disease; D61.818 Other pancytopenia; Z72.0 Tobacco use
CPT/HCPCS: 85025; 36415; 86900; 86850; 86901; 86920 ×2; 80053; 71045; 99283; 36430; P9016 ×2; J7050 ×2; J7040